=== PATIENT | female | born 1980 | race African-American/Black ===

== ENCOUNTER 2024-05-24 18:00 | Emergency (ER) | payer OTHER, SELFPAY ==
--- NOTE | ~2024-05-24 | XR_ITS ---
EXAMINATION: XR chest 2V Exam Date/Time: 05/24/2024 19:33 CDT HISTORY: dyspnea Comparison: None. RESULT: Lines, tubes, and devices: None. Lungs and pleura: Clear. Cardiomediastinal silhouette: Unremarkable. Other: No acute osseous or upper abdominal finding. IMPRESSION: No acute cardiopulmonary process. Reviewed, dictated and finalized at location [facility].
[2024-05-24 18:16] VITALS: BP 157/97; PULSE 100; RESP 15; TEMP 36.4; O2SAT 99
--- NOTE | 2024-05-24 19:28 | ECG_ITS ---
Test Date: 2024-05-24 21:54:03 Measurements Intervals Muddy Rate: 93 P: 63 SC: 165 QRS: -27 QRSD: 79 T: 105 QT: 360 QTc: 450 Interpretive Statements SINUS RHYTHM POSSIBLE LEFT ATRIAL ENLARGEMENT [-0.1mV P WAVE IN V1/V2] ANTEROSEPTAL MYOCARDIAL INFARCTION , OF INDETERMINATE AGE [40+ ms Q WAVE IN V1-V4] No previous ECG available for comparison Electronically Signed On 05-25-2024 08:54:15 CDT by Liad Waterman M.D.
[2024-05-24 21:59] LABS: Basophils Absolute Auto 0.1 K/mm3 (0.0-0.1); Basophils Percent Auto 0.8 % (0.2-1.2); Eosinophils Absolute Auto 0.4 K/mm3 (0-0.3); Hematocrit 32.1 % (37.0-47.0); Hemoglobin 9.8 g/dL (12.0-15.0); Immature Granulocyte Absolute 0.06 K/mm3 (0.00-0.031); Immature Granulocyte Percent A 0.5 % (0-0.5); Lymphocytes Absolute Auto 2.42 K/mm3 (0.9-3.2); Lymphocytes Percent Auto 20.3 % (18.3-44.2); Mean Corpuscular HGB Conc 30.5 g/dl (32-36); Mean Corpuscular Hemoglobin 25.1 pg (26-34); Mean Corpuscular Volume 82.3 fl (80-100); Mean Platelet Volume 10.1 fl (7.4-10.4); Monocytes Absolute Auto 0.9 K/mm3 (0.1-0.6); Monocytes Percent Auto 7.6 % (2.6-8.5); Neutrophils Absolute Auto 8.1 K/mm3 (1.3-6.7); Neutrophils Percent Auto 67.8 % (45.5-73.1); Platelet Count Result 452 k/mm3 (150-375); Red Cell Distribution Width 16.7 % (11.5-14.5)
[2024-05-24 22:10] LABS: Alanine Aminotransferase 15 U/L (6-35); Albumin Level 3.5 g/dL (3.5-5.1); Alkaline Phosphatase 120 U/L (38-126); Anion Gap 7 mmol/L (4-12); Aspartate Amino Transferase 23 U/L (14-36); Bilirubin,Total 0.3 mg/dL (0.2-1.3); Blood Urea Nitrogen 16 mg/dL (7-17); Calcium 8.7 mg/dL (8.4-10.2); Carbon Dioxide 25 mmol/L (22-30); Chloride 103 mmol/L (98-107); Estimated CRCL calculation 60 ml/min; Estimated Glomerular Filt Rate 50; Glucose 171 mg/dL (65-110); Potassium 4.2 mmol/L (3.4-5.0); Sodium 135 mmol/L (137-145)
[2024-05-24 22:37] LABS: Influenza A QL RT-PCR Negative (Negative); Influenza B QL RT-PCR Negative (Negative); RSV RNA, RT-PCR Negative (Negative); SARS-CoV-2 RNA PCR Negative (Negative)
[2024-05-25 00:26] VITALS: PULSE 104; O2SAT 100
[2024-05-25 00:29] VITALS: BP 156/92; PULSE 104; RESP 18; O2SAT 100
--- NOTE | 2024-05-25 00:38 | ED.SOB ---
HPI - SOB/Dyspnea General Chief Complaint: Shortness of Breath/Dyspnea <Rehana Klein PA-C - Last Filed: 05/25/24 02:04> Stated Complaint: shortness of breath <Rehana Klein PA-C - Last Filed: 05/25/24 02:04> Time Seen by Provider: 05/25/24 00:27 <Rehana Klein PA-C - Last Filed: 05/25/24 02:04> Source: patient <SURESH Gomez Last Filed: 05/25/24 02:04> Mode of arrival: ambulatory <Rehana Klein PA-C - Last Filed: 05/25/24 02:04> Limitations: no limitations <Rehana Klein PA-C - Last Filed: 05/25/24 02:04> History of Present Illness HPI Narrative: This is a 43-year-old female that presents to the emergency department for dyspnea. Ongoing over the last month. Worse when lying flat at night. Reports she wakes up coughing. Reports feeling tight in her chest. Reports she has been having abnormal menstrual bleeding the last couple of months with more frequent bleeding. Denies lower extremity edema. <Rehana Klein PA-C - Last Filed: 05/25/24 02:04> Related Data Allergies/Adverse Reactions: Allergies Allergy/AdvReac Type Severity Reaction Status Date / Time cyclobenzaprine Allergy Unknown Verified 11/24/17 09:43 tramadol Allergy Unknown Verified 11/24/17 09:43 <Rehana Klein PA-C - Last Filed: 05/25/24 02:04> Review of Systems Review of Systems: CONSTITUTIONAL: Denies fever CARDIOVASCULAR: Denies chest pain, or edema. RESPIRATORY: Reports cough and dyspnea. <Rehana Klein PA-C - Last Filed: 05/25/24 02:04> All systems reviewed & are unremarkable except as noted in HPI and below <Rehana Klein PA-C - Last Filed: 05/25/24 02:04> [facility] Past Medical History Medical History: Medical History (Updated 05/25/24 @ 02:03 by Rehana Klein PA-C) Smoker Type 2 diabetes mellitus <Rehana Klein PA-C - Last Filed: 05/25/24 02:04> Family History Family History: Family History (Updated 11/24/17 @ 09:45 by DOCTOR UNKNOWN) Other Cerebrovascular accident Diabetes mellitus Family history of allergic disorder Family history of cardiovascular disease Family history of kidney disease Family history of malignant neoplasm Hypertension <Rehana Kleni PA-C - Last Filed: 05/25/24 02:04> Social History Social History: Social History Smoking status: Current every day smoker Alcohol intake: current <Rehana Klein PA-C - Last Filed: 05/25/24 02:04> Exam Narrative: GENERAL: Well-appearing, well-nourished, and in no acute distress. HEAD: Normocephalic, atraumatic. EYES: EOMI. ENT: Nares clear, no rhinorrhea or epistaxis. Mucous membranes moist. Oropharynx without tonsillar hypertrophy exudate or other lesions. NECK: Supple. No adenopathy or masses. No JVD CHEST: No respiratory distress. Lung sounds diminished, bronchial with coughing. No wheezes rales or rhonchi HEART: Regular rate and rhythm. No murmur heard. Normal peripheral pulses. EXTREMITIES: Normal range of motion. No edema. SKIN: Warm, dry, no rash. NEURO: No focal deficits. Alert and oriented x3. PSYCH: Normal mood and affect <Rehana Klein PA-C - Last Filed: 05/25/24 02:04> Course Course Emergency Course: Patient was updated on her workup and recommendation for admission. She would like to have close follow up outpatient with her PCP <Rehana Klein PA-C - Last Filed: 05/25/24 02:04> [employer] P[employer]CHER/PA Physician Supervision I agree with midlevel documentation; I performed the medical decision making component of this evaluation. <Lisa Boyer MD - Last Filed: 05/25/24 03:09> Vital Signs Vital signs: Vital Signs Temperature 97.6 F 05/24/24 18:16 Pulse Rate 100 05/24/24 18:16 Respiratory Rate 15 05/24/24 18:16 Blood Pressure 157/97 H 05/24/24 18:16 Pulse Oximetry 99 05/24/24 18:16 Oxygen Delivery Room Air 05/24/24 18:16 Temperature 97.6 F 05/24/24 18:16 Pulse Rate 104 H 05/25/24 00:29 Re
[2024-05-25 00:54] VITALS: RESP 20
[2024-05-25] MEDS: IPRATROPIUM 0.5 MG/ALBUTEROL SULFATE 2.5 MG AMPUL.NEB 3 ML INHALATION (00:54)
[2024-05-25] MEDS: predniSONE 20 MG TABLET 60 MG PO (01:07)
[2024-05-25 01:22] LABS: NT Pro B Type Natriuretic Pept 5290 pg/mL (19.9-100); Troponin I 0.018 ng/mL (0.000-0.034)
== END 2024-05-25 02:08 | disposition home or self-care (01) ==
PROVIDERS: Emergency Medicine; Emergency Provider Physician Assistant; PCP Family Medicine
DX: J20.9 Acute bronchitis, unspecified (principal); D64.9 Anemia, unspecified; R79.89 Other specified abnormal findings of blood chemistry; Z20.822 Contact with and (suspected) exposure to COVID-19; E11.9 Type 2 diabetes mellitus without complications; F17.200 Nicotine dependence, unspecified, uncomplicated; R94.31 Abnormal electrocardiogram [ECG] [EKG]
CPT/HCPCS: 36415; 71046; 80053; 83880; 84484; 85025; 87637; 93005; 94640; 99284; J7512